=== PATIENT | female | born 1975 | race Caucasian/White ===

== ENCOUNTER 2020-11-05 22:00 | Inpatient (IN) | payer OTHER ==
[~2020-11-05] VITALS: Ht 154.9 cm; Wt 82.6 kg
[2020-11-05 22:11] VITALS: BP 155/86
[2020-11-05 22:26] LABS: URINE BILIRUBIN NEGATIVE (Negative); URINE BLOOD 2+ (Negative); URINE CLARITY SL CLOUDY; URINE COLOR YELLOW; URINE GLUCOSE-RANDOM NEGATIVE (Negative); URINE KETONES NEGATIVE (Negative); URINE LEUKOCYTES-REFLEX TRACE (Negative); URINE NITRITE-REFLEX NEGATIVE (Negative); URINE PROTEIN TRACE (Negative); URINE SPECIFIC GRAVITY >= 1.030 (1.005-1.030); URINE UROBILINOGEN 0.2 E.U./dl (0.2-1.0)
[2020-11-05 22:30] LABS: BACTERIA-REFLEX >30 Many /HPF (None Seen); CASTS None Seen /LPF (None Seen); CRYSTALS None Seen /LPF (None Seen); MUCUS 0-3 Light strn/LPF (None Seen); SQUAMOUS 0-3 Few /LPF (0-3); TRANSITIONAL EPITHEL CELL 0-3 Few /LPF (None Seen); URINE WBC-REFLEX >25 Many /HPF (0-5); WBC CLUMPS Few (None Seen)
[2020-11-05 22:38] LABS: ABSOLUTE BASOPHILS 0.1 thou/uL (0.0-0.2); ABSOLUTE EOSINOPHILS 0.5 thou/uL (0.0-0.7); ABSOLUTE LYMPHOCYTES 2.6 thou/uL (0.8-5.3); ABSOLUTE MONOCYTES 1.3 thou/uL (0.0-1.2); ABSOLUTE NEUTROPHILS 8.7 thou/uL (1.6-8.1); BASOPHILS 0.9 %; EOSINOPHILS 3.8 %; HEMATOCRIT 39.5 % (37.0-47.0); HEMOGLOBIN 12.5 gm/dL (12.0-15.0); LYMPHOCYTES 19.7 %; MCH 22.9 pg (26.0-34.0); MCHC 31.6 g/dL (28.0-37.0); MCV 72.2 fL (80.0-100.0); MONOCYTES 10.1 %; MPV 7.7 fl. (7.2-11.1); NUCLEATED RBCS 0 /100WBC; PLATELET COUNT* 329 thou/uL (150-400); POLYS 65.5 %; RBC 5.47 mil/uL (4.20-5.00); RDW-CV 16.4 % (10.5-14.5); WBC 13.3 thou/uL (4.0-11.0)
[2020-11-05 22:45] LABS: CALCIUM 9.1 mg/dL (8.5-10.1); POTASSIUM 3.3 mmol/L (3.5-5.1)
[2020-11-05 22:50] LABS: ALBUMIN 3.5 g/dL (3.4-5.0); TOTAL BILIRUBIN 0.1 mg/dL (<0.1-1.0); TOTAL PROTEIN 7.5 g/dL (6.4-8.2)
[2020-11-05 23:10] LABS: ANISOCYTOSIS 1+; HYPOCHROMASIA 1+; MICROCYTES 1+
[2020-11-06 08:30] VITALS: BP 128/76
[2020-11-06 08:45] VITALS: BP 138/72
--- NOTE | 2020-11-06 15:12 | EKG ---
[place] [address] ELECTROCARDIOGRAM REPORT Name: TRENA ARIAS Room: [address] ADM IN .R.#: [id number] Admission: 11/06/20 Attend Phys: Eddy Naylor, Discharge: Date of : 75 Date of Service: 11/05/20 2213 Report #: [id number] THIS REPORT FOR: //name// [facility] ED Test Date: 2020-11-05 Test Time: 22:13:21 Pat Name: TRENA ARIAS Department: Room: [facility] Gender: F Resistance Brazer: [place] : 1975 Requested By: Christiano Valenzuela Order Number: [id number] MD: Reed Espinoza Measurements Intervals [place] Rate: 83 P: 43 CT: 165 QRS: 18 QRSD: 94 T: 41 QT: 365 QTc: 429 Interpretive Statements Sinus rhythm Baseline wander in lead(s) II,aVR No previous ECG available for comparison Electronically Signed On 11-06-2020 15:12:26 [employer]MENTAL [employer]PRENTICE by Reed Espinoza [email or web address] <ELECTRONICALLY SIGNED> By: Reed Espinoza MD, [facility] 11/06/20 1512 2213 2213 Reed Espinoza MD, [facility] /EPI
[2020-11-06 16:17] VITALS: BP 121/72
[2020-11-06 20:30] VITALS: BP 101/55
[2020-11-07 04:26] LABS: HEMATOCRIT 36.8 % (37.0-47.0); MCH 23.5 pg (26.0-34.0); MCHC 32.6 g/dL (28.0-37.0); MCV 72.2 fL (80.0-100.0); MPV 7.6 fl. (7.2-11.1); RBC 5.1 mil/uL (4.20-5.00); RDW-CV 16.6 % (10.5-14.5); WBC 10.8 thou/uL (4.0-11.0)
[2020-11-07 04:47] LABS: ALBUMIN 2.9 g/dL (3.4-5.0); CALCIUM 8.4 mg/dL (8.5-10.1); CREATININE 0.8 mg/dL (0.6-1.3); POTASSIUM 3.6 mmol/L (3.5-5.1); TOTAL BILIRUBIN 0.6 mg/dL (<0.1-1.0); TOTAL PROTEIN 6.4 g/dL (6.4-8.2)
[2020-11-07 08:05] VITALS: BP 126/75
[2020-11-07 15:03] VITALS: BP 126/75
[2020-11-07] MEDS ORDERED: PROTONIX40 M2 PO (16:10)
--- NOTE | 2020-11-07 19:17 | OP ---
[address] [address] OPERATIVE REPORT Name: TRENA ARIAS Room: [address] IN M.Dawn.#: [id number] Admission: 11/06/20 Attend Phys: Eddy Naylor MD Discharge: Date of : 75 Report #: [id number] THIS REPORT FOR: cc: FAM - No family physician/PCP FAM - No family physician/PCP ~ Janki Chadwick DO DATE OF SERVICE: 11/07/2020 PREOPERATIVE DIAGNOSIS: Acute cholecystitis with cholelithiasis without obstruction. POSTOPERATIVE DIAGNOSES: Acute cholecystitis with cholelithiasis without obstruction. FINDINGS: Distended gallbladder with signs of acute cholecystitis and several large stones. SURGEON: Janki Chadwick DO COSURGEON: Romero Pham, PGY-1. PASTE UP ARTIST: NEVAEH Johnston. PROCEDURE PERFORMED: Laparoscopic cholecystectomy. ANESTHESIA: General endotracheal with local and tap's block. ESTIMATED BLOOD LOSS: 5 mL. DRAINS: None. SPECIMENS: Gallbladder. COMPLICATIONS: None. CONDITION: Stable. DISPOSITION: PACU. HISTORY OF PRESENT ILLNESS: The patient is a pleasant 45-year-old female who presented to the ED with a complaint of upper abdominal pain. On workup, she was found to have acute cholecystitis with cholelithiasis. She was admitted to the hospital and was later then planned for laparoscopic cholecystectomy. Risks discussed included bleeding, infection, pain, scar formation, injury to bowel, liver or bile duct, hernia at the incision sites, need for an open procedure and [facility] [address] [place] [address] OPERATIVE REPORT Name: TRENA ARIAS [place] Room: [address] IN M.R.#: [id number] Admission: 11/06/20 Attend Phys: Eddy Naylor MD Discharge: Date of : 75 Report #: [id number] risks of general anesthesia. The patient understood these risks and elected to proceed. DESCRIPTION OF PROCEDURE: The patient was brought to the operating room. She was laid supine on the operating room table. SCDs were placed on bilateral lower extremities. The patient was already on scheduled Zosyn in the perioperative period. General endotracheal anesthesia was induced by Anesthesia without difficulty. Tap's blocks were then also provided without issue. Abdomen was prepped and draped in standard sterile fashion. Timeout was performed to verify patient and procedure. A 10 mL of 0.5% Marcaine were injected in the infraumbilical area. Incision was made with 11 blade. Cautery was used for hemostasis. S retractors were used to visualize the fascia. Fascia was grasped and elevated between 2 Kochers. Fascia was incised using cautery. Peritoneum was bluntly entered using a Valeria clamp. Finger was introduced into the abdomen to assure that there were no bonnie-incisional adhesions, none were identified. Two stitches of 0 Vicryl placed on the fascia. Melissa trocar was introduced and secured with 0 Vicryl stitches. Abdomen was insufflated. The patient was placed head up and tilted left side down. Camera was introduced and a brief anterior abdominal exploration was undertaken with findings of a distended gallbladder. Three 5 mm trocars were introduced, one in the subxiphoid area and two in the right upper quadrant, all under direct visualization. Gallbladder was grasped and elevated. Peritoneum overlying the triangle of Calot was incised using cautery. Duct and artery were then both easily visualized, both were circumferentially dissected free using a [place] dissector. Any tissues posterior to the artery were removed. This then afforded the critical view. Duct and artery were both doubly clipped and ligated. Gallbladder was then removed from the liver bed utilizing cautery with no further difficulty. Specimen was placed within an EndoCatch bag. Liver bed was inspected. It was hemostatic. Clips were inspected. They were intact. There was no bleeding or leakage noted from the area of the clips. Right upper quadrant was irrigated until clear. Trocars were removed under direct visualization. There was no bleeding noted from the peritoneum. Abdomen was completely desufflated. Melissa trocar was removed and EndoCatch bag was removed with specimen intact. Several stones were palpated. Specimen was handed off for permanent pathology. Kochers were placed on the fascia of the infraumbilical port. Previously placed 0 Vicryl stitches were removed and a 0 Vicryl stitch was placed in a [id number] fashion with excellent approximation of the fascia. An additional 10 mL of 0.5% Marcaine were injected in the fascia. This wound was closed in a layered fashion using deep and superficial stitches of 3-0 Vicryl in inverted interrupted fashion. Skin wounds were all closed with 4-0 Monocryl. A total of 30 mL of 0.5% Marcaine were used to anesthetize the wounds. Wounds were cleansed and covered with Dermabond. The patient was then allowed to awaken from anesthesia, was extubated and [address] [address] OPERATIVE REPORT Name: TRENA ARIAS [place] Room: [address] IN M.R.#: [id number] Admission: 11/06/20 Attend Phys: Eddy Naylor MD Discharge: Date of : 75 Report #: [id number] transported to the recovery room with no further difficulties. Counts were correct x 2 at the conclusion of the case. <ELECTRONICALLY SIGNED> By: Janki Chadwick DO 11/07/20 1917 1826 1907Chorin Chadwick DO /randee
[2020-11-08] VITALS: BP 128/65
[2020-11-08 03:55] VITALS: BP 110/60
[2020-11-08 07:30] VITALS: BP 115/68
[2020-11-08 11:04] VITALS: BP 115/68
[2020-11-08 15:16] VITALS: BP 115/68
== END 2020-11-08 14:45 | disposition home or self-care (01) | DRG 418 ==
LOC: M.ERS 22:00 → M.TBA-ER 11-06 00:14 → M.3W 11-06 00:14
PROVIDERS: Emergency Medicine Emergency Medical Services; Surgery; ADMIT Internal Medicine; ATTEND Internal Medicine
PROC: 0FT44ZZ Resection of Gallbladder, Percutaneous Endoscopic Approach (ICD-10-PCS; principal; 2020-11-07)
DX: K80.00 Calculus of gallbladder with acute cholecystitis without obstruction (principal); K80.42 Calculus of bile duct with acute cholecystitis without obstruction; N30.91 Cystitis, unspecified with hematuria; Z20.828 Contact with and (suspected) exposure to other viral communicable diseases